=== PATIENT | male | born 1965 | race Caucasian/White ===

== ENCOUNTER 2017-02-03 05:03 | Inpatient (IN) | payer BC ==
[2017-01-04 13:19] VITALS: BMI 25.0
--- NOTE | 2017-01-04 13:47 | PAT Medication Instructions ---
Service Date Jan 04, 2017. Current Home Medication List Bupropion (Wellbutrin), 1 TAB PO QAM Cholecalciferol (Vitamin D3), 1 TAB PO QAM Escitalopram Oxalate (Lexapro), 1 TAB PO QAM Fish Oil (Pineland-3), 1 CAP PO QAM Magnesium Oxide (Mag-Ox), 400 MG PO QAM Multivitamin (Multivitamin), 1 TAB PO QAM Medication Instructions For Your Scheduled Surgery - Hold the following medications 2 weeks prior to surgery: Fish Oil (Pineland-3), 1 CAP PO QAM - Hold the following medications the morning of surgery: Magnesium Oxide (Mag-Ox), 400 MG PO QAM Multivitamin (Multivitamin), 1 TAB PO QAM Cholecalciferol (Vitamin D3), 1 TAB PO QAM - Take the following medications the morning of surgery with a sip of water: Bupropion (Wellbutrin), 1 TAB PO QAM Escitalopram Oxalate (Lexapro), 1 TAB PO QAM - Take the following medications as scheduled the night before surgery: Cholecalciferol (Vitamin D3), 1 TAB PO QPM If you have any questions please call us at [phone] or [phone] or [phone]
--- NOTE | 2017-01-04 14:12 | DIAGNOSTIC IMAGING REPORT ---
CHEST 2 VIEWS ROUTINE CLINICAL HISTORY: PAT preoperative evaluation COMPARISON STUDY: No previous studies for comparison. FINDINGS: The bones soft tissues and hemidiaphragms are normal. The cardiomediastinal silhouette is normal. The lungs are clear. The pulmonary vasculature is normal. IMPRESSION: Negative chest. The above report was generated using voice recognition software. It may contain grammatical, syntax or spelling errors. Electronically signed by: Conor Fu M.D. 01/04/2017 2:11 PM Dictated Date/Time: 01/04/2017 2:10 PM
[2017-01-04 14:45] LABS: BASO % 0.6 %; BASO ABS # 0.04 K/uL (0-0.2); COMPLETE YES; EOS % 2.1 %; HEMATOCRIT 45.6 % (42-52); IG% 0.4 %; LYMPH % 26.5 %; LYMPH ABS # 1.85 K/uL (1.2-3.4); MEAN CELL VOLUME 88.2 fL (80-100); MEAN CORPUSCULAR HEMOGLOBIN 30.4 pg (25-34); MEAN CORPUSCULAR HGB CONC 34.4 g/dl (32-36); MEAN PLATELET VOLUME 9.7 fL (7.4-10.4); MONO % 10.3 %; NEUT % 60.1 %; PLATELET COUNT 231 K/uL (130-400); RED BLOOD COUNT 5.17 M/uL (4.7-6.1); WHITE BLOOD COUNT 6.98 K/uL (4.8-10.8)
[2017-01-04 14:55] LABS: URINE APPEARANCE CLEAR (CLEAR); URINE BILIRUBIN NEG (NEG); URINE COLOR YELLOW; URINE NITRITE NEG (NEG); URINE PH 6.5 (4.5-7.5); UROBILINOGEN NEG (NEG)
[2017-01-04 14:55] LABS: PROTHROMBIN TIME (PATIENT) 10.6 SECONDS (9.0-12.0)
[2017-01-04 15:00] LABS: MANUAL MICROSCOPIC REQUIRED? NO; REVIEW REQ? NO
[2017-01-04 15:12] LABS: BUN/CREATININE RATIO 14.8 (10-20); CALCIUM 9.4 mg/dl (8.5-10.1); CREATININE 1.35 mg/dl (0.60-1.40)
--- NOTE | 2017-02-02 07:12 | HISTORY & PHYSICAL EXAMINATION ---
DATE OF ADMISSION: 02/03/2017 CHIEF COMPLAINT: Primary osteoarthritis of the right hip. 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 He has had right hip pain for several years, but over the past year it has become significantly painful. He has already failed conservative treatment including Euflexxa injections and physical therapy. X-rays and clinical examinations have been diagnostic for primary osteoarthritis of the hip. After failing extensive conservative treatment, he has elected to proceed with a total hip arthroplasty. PAST MEDICAL HISTORY: Significant for depression. MEDICATIONS: Include Lexapro and Wellbutrin. PAST SURGICAL HISTORY: Carpal tunnel release of his right wrist, arthroscopic surgery to the right shoulder and hernia repair. ALLERGIES: PENICILLINS. FAMILY HISTORY: Significant for heart disease, stroke, diabetes, DVTs and cancer. SOCIAL HISTORY: He is , lives alone, rarely drinks, is very active. REVIEW OF SYSTEMS: He complains mostly of right hip pain. All other pertinent review of systems are negative. PHYSICAL EXAMINATION: GENERAL: He is awake, alert and oriented x3. He is in no apparent distress. He is very pleasant. HEENT: Pupils are equal, round and reactive to light. Extraocular motion intact. Oral mucosa is pink and moist. HEART: Regular rate per radial pulse. LUNGS: Brittanie symmetrically bilaterally with no audible breath sounds. ABDOMEN: Soft, nontender, nondistended. MUSCULOSKELETAL: On physical examination of his hip, he is able to get his hip in full extension. He gets about 90 degrees of flexion. He has significant pain with forced internal and external rotation of his hip. His leg lengths are essentially equal. IMAGING: X-rays of the hip do show advanced osteoarthritis of the right hip with joint space narrowing and osteophyte formation. IMPRESSION: Primary osteoarthritis of the right hip. PLAN: Proceed with an anterior right total hip arthroplasty. Postoperatively, he will be started on aspirin for DVT prophylactics and kept in the hospital likely for 2 midnights for postoperative medical management.
[2017-02-03] VITALS (8 sets, daily range): BP systolic 110–147; BP diastolic 61–103; PULSE 70–100; TEMP 36.5–37.3; O2SAT 93–98; Ht 172.7 cm; Wt 74.4 kg
[~2017-02-03] VITALS: Ht 172.7 cm; Wt 74.4 kg
[~2017-02-03 05:03] MED LIST: BUPR75TA20 PO; ESCI1TAB6 PO; MAGN400T6 PO; MULT-506 PO; OMEG10007 PO; VTMD1000 PO
[2017-02-03] MEDS ORDERED: CYAN100073 PO (05:47)
[2017-02-03] MEDS ORDERED: LACTATED RINGER'S 1000ML 500 ML IV ONE (06:00)
[2017-02-03] MEDS ORDERED: ACETAMINOPHEN 500 MG TAB PO SCH (06:00)
[2017-02-03] MEDS ORDERED: ROPIVACAINE 5MG/ML 30 ML 150 MG, BUPIVACAINE 0.5% MPF INJ 30 ML, EpINEphrine HCL INJ 0.... INFIL SCH ×8 (06:00)
[2017-02-03] MEDS ORDERED: GABAPENTIN 300 MG CAP PO SCH (06:00)
[2017-02-03] MEDS ORDERED: LACTATED RINGER'S 1000ML IV SCH (06:00)
[2017-02-03] MEDS ORDERED: FAMOTIDINE 20 MG TAB PO SCH (06:00)
[2017-02-03] MEDS ORDERED: LACTATED RINGER'S 1000ML 1,000 ML IV SCH (06:00)
[2017-02-03] MEDS ORDERED: VANCOMYCIN 1GM/270ML NSS 270 ML IV SCH (06:00)
[2017-02-03] MEDS ORDERED: BUPIVACAINE 0.5 % 5 MG/1 ML PF 10ML VIAL ONE (06:24)
[2017-02-03] MEDS: TRANEXAMIC ACID INJ 1,000 MG in SYRINGE 0 ML IV SCH ×2 (06:30→06:41)
[2017-02-03] MEDS ORDERED: ORTHO JOINT ANESTHETIC ONE (06:31)
[2017-02-03] MEDS ORDERED: BACITRACIN 50000 UNIT VIAL ONE (06:32)
[2017-02-03] MEDS ORDERED: FENTANYL CITRATE INJ 50 MCG/1 ML 2 ML VIAL ONE ×2 (06:35→09:09)
[2017-02-03] MEDS ORDERED: MIDAZOLAM HCL 1 MG/ML 2ML VIAL ONE ×2 (06:36→06:59)
[2017-02-03] MEDS ORDERED: PROMETHAZINE HCL INJ 12.5 MG in SODIUM CHLORIDE 0.9% 50ML 50 ML IV PRN (06:45)
[2017-02-03] MEDS ORDERED: ONDANSETRON INJ 2 MG/ML 2 ML VIAL IV PRN ×2 (06:45→09:15)
[2017-02-03] MEDS ORDERED: FENTANYL CITRATE INJ 50 MCG/1 ML 2 ML VIAL IV PRN (06:45)
[2017-02-03] MEDS ORDERED: ATROPINE SULFATE 0.1 MG/ML 5ML SYR IV PRN (06:45)
[2017-02-03] MEDS ORDERED: EpHEDrine SULFATE INJ 50 MG/ML AMP IV PRN (06:45)
[2017-02-03] MEDS ORDERED: HYDROmorphone INJ 1 MG/ML SYR IV PRN (06:45)
--- NOTE | 2017-02-03 06:45 | History & Physical Bridge Note ---
H&P Re-Evaluation Bridge Note: I have examined the patient, reviewed the History & Physical and in the interval since the performance of the History & Physical I have noted the following changes of clinical significance: No changes noted
[2017-02-03] MEDS ORDERED: HYDROmorphone INJ 2 MG/ML SYR/VIAL ONE (07:35)
[2017-02-03] MEDS ORDERED: DEXAMETHASONE SOD INJ 4 MG/ML VIAL ONE (08:08)
[2017-02-03] MEDS ORDERED: LIDOCAINE HCL 2% 2 ML VIAL (20MG/ML) ONE (08:08)
[2017-02-03] MEDS ORDERED: ONDANSETRON INJ 2 MG/ML 2 ML VIAL ONE (08:08)
[2017-02-03] MEDS ORDERED: PROPOFOL IV EMULSION 10 MG/ML 20 ML VIAL IV ONE (08:08)
--- NOTE | 2017-02-03 09:11 | [facility] Post Operative Brief Note ---
Immediate Operative Summary Operative Date Feb 03, 2017. Pre-Operative Diagnosis Right Hip Degenerative Joint Disease Post-Operative Diagnosis Same as preop Procedure(s) Performed Right Anterior Total Hip Arthroplasty Uncemented Surgeon Dr. Isabel Motor Vehicle Lecturer Surgeon(s) Miguel Oswald PA-C Estimated Blood Loss 250 ml Findings as above Specimens A. Right Femoral Head Complication(s) None Disposition Recovery Room / PACU
[2017-02-03] MEDS ORDERED: MoRPHine SULFATE 2 MG/ML CARP IV PRN (09:15)
[2017-02-03] MEDS ORDERED: SOD PHOSPHATE/SOD BIPHOSPHATE ENEMA 132 ML BTL PR PRN (09:15)
[2017-02-03] MEDS ORDERED: METOCLOPRAMIDE HCL INJ 5 MG/ML 2 ML VIAL IV PRN (09:15)
[2017-02-03] MEDS ORDERED: MAGNESIUM HYDROXIDE SUSP 30 ML UDC PO PRN (09:15)
[2017-02-03] MEDS ORDERED: BISACODYL 10 MG SUPP PR PRN (09:15)
[2017-02-03] MEDS ORDERED: PHENYLEPHRINE 100MCG/ML 5ML SYR ONE (09:28)
[2017-02-03] MEDS ORDERED: EpHEDrine SULFATE 50MG/5ML SYR ONE (09:28)
--- NOTE | 2017-02-03 09:47 | OPERATIVE REPORT ---
DATE OF OPERATION: 02/03/2017 PREOPERATIVE DIAGNOSIS: Primary osteoarthritis of the right hip. POSTOPERATIVE DIAGNOSIS: Same. PROCEDURE: Anterior right total hip arthroplasty. SURGEON: Dr. Niels Isabel. GRANULIZING MACHINE OPERATOR: Miguel Oswald PA-C, whose assistance was necessary for retraction and closure. ANESTHESIA: Spinal and general because the spinal was not fully effective. COMPLICATIONS: None. CONDITION: Stable to PACU. IMPLANTS USED: I used a [employer]omet Taperloc total hip arthroplasty system with a size 5 standard offset Taperloc stem, a size 50-mm G7 cup with a single 30-mm screw, a G7 dual mobility E1 liner with a 28 ceramic head with a -3 neck. INDICATIONS: Adan is a pleasant 51-year-old male, who presented to my office with chronic right hip and groin pain. X-rays and clinical examination were diagnostic for primary osteoarthritis of the right hip. He is a very active individual. He elected to undergo an anterior total hip arthroplasty. DESCRIPTION OF PROCEDURE: On 02/03/2017, he arrived at the [facility] for the above procedure. He was seen in the preoperative holding area and the operative extremity was identified and signed. He was given preoperative antibiotics and a spinal anesthetic. He was taken back to the operating room, laid on the table in supine position and given basic sedation. The right hip was then put on to a Purist leg positioner. The right hip was then prepped and draped in sterile fashion. Time-out was done and the patient's operative extremity was properly identified. Unfortunately, the patient was still having some sensation at the surgical area. We decided to put him under general anesthesia. Once he was under anesthesia, an anterior hip incision was made. Dissection was taken down to the tensor and the tensor muscle belly was retracted laterally and the rectus was retracted medially. The circumflex vessels were ligated. The capsule was then incised and tagged for later repair. The femoral neck was then resected and the head was removed. Time was spent doing a complete circumferential labral release. Sequential reaming up of the acetabulum up to a size 49 reamer was done. A size 50 G7 cup was then impacted into place. Appropriate version was checked under fluoroscopy. A single 30-mm screw was placed. The metal shell was then placed for the dual mobility cup. I chose dual mobility for increased range of motion and stability and longevity in an active 51-year-old. The proximal femur was then exposed. Sequential broaching up to a size 5 broach was done. He had a very tight canal. X-rays were taken and I was happy with the size of the stem. The final size 5 Taperloc stem was then impacted into place. Several different neck combinations were used and a -3 neck seemed to be the best fit. The -3 neck also restored anatomic leg lengths. A 28-mm ceramic head was then impacted into the plastic 40-mm shell and that was placed on the femoral stem. The hip was then reduced. Final fluoroscopic images showed anatomic reduction of the hip. The wound was then irrigated. The surrounding soft tissues were then injected with 100 mL of an orthopedic pain control cocktail. The capsule was then closed with #1 FiberWire suture. A drain was placed. The fascia was then closed with #1 PDS suture. Skin was closed with 2-0 Vicryl, 3-0 V-Loc suture, jayden and a Prevena VAC dressing. He was then extubated, transferred to a [facility] and taken to the postanesthesia care unit in stable condition. He tolerated the procedure well. I attest to the content of the Intraoperative Record and any orders documented therein. Any exception s are noted below.
--- NOTE | 2017-02-03 10:02 | Anesthesiology Progress Note ---
Anesthesia Post Op Note Date & Time Feb 03, 2017 at 10:02 Vital Signs Pain Intensity: 0 Vital Signs Past 12 Hours Date Time Temp Pulse Resp B/P (MAP) Pulse Ox O2 Delivery O2 Flow Rate FiO2 02/03/17 09:55 75 12 152/87 99 Nasal Cannula 2 02/03/17 09:45 75 14 140/88 100 Oxymask 10 02/03/17 09:35 89 16 137/85 100 Oxymask 13 02/03/17 09:24 36.9 81 16 118/69 98 Oxymask 13 02/03/17 05:19 36.5 70 18 147/103 97 Room Air Notes Mental Status: alert / awake / arousable, participated in evaluation Pt Amnestic to Procedure: Yes Nausea / Vomiting: adequately controlled Pain: adequately controlled Airway Patency, RR, SpO2: stable & adequate BP & HR: stable & adequate Hydration State: stable & adequate Neuraxial Anesthesia: was administered, sensory block is resolving Anesthetic Complications: no major complications apparent
--- NOTE | 2017-02-03 10:03 | DIAGNOSTIC IMAGING REPORT ---
R PELVIS/UNILATERAL HIP 1 VIEW HISTORY: 51 years-old Male IN PACU - A/P PELVIS and LATERAL HIP INCLUDING ALL OF IMPLANT status post right hip total joint arthroplasty. Degenerative joint disease. COMPARISON: Pelvis and right hip radiographs 09/13/2016 TECHNIQUE: AP view of the pelvis with frog-leg view of the right hip FINDINGS: Postoperative changes compatible with recent right hip total joint arthroplasty. Alignment is satisfactory without periprosthetic fracture or malalignment identified. 7 mm bone fragment lateral to the ischial tuberosity is noted without definite donor site identified. Linear ossification inferior to the acetabulum likely reflects degenerative marginal osteophytes. Lateral skin jayden are noted in addition to a surgical drain and expected postsurgical soft tissue swelling and deep tissue air. Phleboliths of the pelvis. IMPRESSION: Status post right hip total joint arthroplasty without definite complication identified. The above report was generated using voice recognition software. It may contain grammatical, syntax or spelling errors. Electronically signed by: Iftikhar Cid M.D. 02/03/2017 10:02 AM Dictated Date/Time: 02/03/2017 9:59 AM
--- NOTE | 2017-02-03 12:02 | DIAGNOSTIC IMAGING REPORT ---
R HIP UNILATERAL 1 VIEW HISTORY: 51 years-old Male RT ANTERIOR HIP status post right hip arthroplasty. Degenerative joint disease. COMPARISON: Pelvis radiograph radiographs of same day at 9:37 AM TECHNIQUE: 2 spot fluoroscopic images of the right hip were obtained utilizing 52.9 seconds fluoroscopy time FINDINGS: First image demonstrates placement of the acetabular component which appears to be in satisfactory positioning. The right femoral head and neck have been resected. Second image demonstrates placement of the femoral stem articulating with the acetabular component. Alignment appears satisfactory. IMPRESSION: Status post right hip arthroplasty without complication identified. The above report was generated using voice recognition software. It may contain grammatical, syntax or spelling errors. Electronically signed by: Iftikhar Cid M.D. 02/03/2017 12:00 PM Dictated Date/Time: 02/03/2017 11:59 AM
[2017-02-03] MEDS: KETOROLAC TROMETHAMINE 30 MG/ML VIAL IV. SCH ×2 (13:50→18:00)
[2017-02-03] MEDS: SODIUM CHLORIDE 0.9% 1000ML 1,000 ML IV SCH (13:50)
[2017-02-03] MEDS: ACETAMINOPHEN IV 1,000 MG in EMPTY BAG 0 ML IV SCH ×2 (13:50→22:22)
[2017-02-03] MEDS ORDERED: VANCOMYCIN INJ 1,000 MG in SODIUM CHLORIDE 0.9% 250ML 250 ML IV SCH (16:00)
--- NOTE | 2017-02-03 16:01 | Discharge Instructions ---
Discharge Instructions Date of Service Feb 03, 2017. Admission Reason for Admission: Right Hip Degenerative Joint Disease Discharge Discharge Diagnosis / Problem: Right Total Hip Discharge Goals Goal(s): Decrease discomfort, Improve function Activity Recommendations Activity Limitations: as noted below . Instructions / Follow-Up Instructions / Follow-Up Activity and Therapy Recommendations: * If you are using [facility] then Physical Therapy will be provided until they feel you are ready to start Outpatient Physical Therapy. If you are not using a Home Health agency then Outpatient Physical Therapy should start about 3-5 days from your day of surgery. Therapy will last about 3-6 weeks * You were shown a series of exercises in the hospital. Do these exercises three times each day including the exercises you were shown in physical therapy. * Get up and walk several times each day.~ For the first four weeks, try not to stand or walk for more than one hour at a time. If you do stand or walk for more than one hour, you will not hurt anything, but your leg will likely swell.~ ~ * As you feel comfortable, you may change from the walker or crutches to a cane and~then to independent walking. Medications: * Narcotic You will likely be sent home from the hospital with a prescription for the narcotic pain medication that worked best throughout your stay. * Aspirin Most patients will be required to take Aspirin 325mg twice a day for 6 weeks after surgery. This is obtained [id number] and a prescription is not necessary. * Other medications may be prescribed for specific circumstances. If you have any questions, please call the office at . * Resume previous home medications unless otherwise instructed TEDs/Elastic Stockings: The white elastic stockings help limit swelling and prevent blood clots from forming in your legs. The more you wear them, the more they work. Wear them for six weeks. Dressing Care: Take the VAC dressing off if it is still on at 10 days. Then cover with dry dressing on needed or leave open to air. Don't be concerned if VAC come off before 10 days (it often does) Showering: You may shower with VAC, but don't let spray directly hit it. It can get a little wet, but not soaked. May shower normal once VAC is removed. Let soapy water run over jayden. Things To Watch For: * Drainage from the incision site that occurs more than one week after your surgery. * Increased redness at the incision site. * Fever above 102 degrees Fahrenheit. * Unusual chest pain or shortness of breath. * Call [facility] at with any of the above problems Follow-Up Visit: Follow-up with Dr. Isabel 2 weeks after your day of surgery. An appointment was probably scheduled when you signed-up for surgery in the office. If you have any questions call Office Instructions: More detailed instructions as well as Frequently Asked Questions were provided in a folder by our office when you signed-up for surgery. Please review these instructions when you get home. If you have any further questions or concerns, please feel free to call the office at [phone] Current Hospital Diet Patient's current hospital diet: Regular Diet Discharge Diet Recommended Diet: Regular Diet Procedures Procedures Performed: Right Anterior Total Hip Arthroplasty Uncemented Pending Studies Studies pending at discharge: no Medical Emergencies . Who to Call and When: Medical Emergencies: If at any time you feel your situation is an emergency, please call 911 immediately. . Non-Emergent Contact Non-Emergency issues call your: Surgeon Call Non-Emergent contact if: wound has increased drainage, wound has increased redness . "Provider Documentation" section prepared by Niels Isabel. . VTE Core Measure Inpt VTE Proph given/why not?: Other Anticoagulation (Aspirin 325 twice a day for 6 weeks)
[2017-02-03] MEDS: OXYCODONE HCL IR 5 MG TAB (IMMEDIATE RELEASE) PO PRN (19:10)
[2017-02-03] MEDS ORDERED: SENNA 8.6 MG TAB PO SCH (21:00)
[2017-02-03] MEDS: DOCUSATE SODIUM 100 MG CAP PO SCH (21:20)
[2017-02-03] MEDS: ASPIRIN 325 MG ECTAB PO SCH (21:20)
[2017-02-03] MEDS ORDERED: LXP/20 PO (23:18)
[2017-02-03] MEDS ORDERED: BUPR150T6 PO (23:18)
[2017-02-03] MEDS ORDERED: WLLSR150 PO (23:23)
[2017-02-04] MEDS: KETOROLAC TROMETHAMINE 30 MG/ML VIAL IV. SCH ×3 (00:09→11:38)
[2017-02-04] MEDS: SODIUM CHLORIDE 0.9% 1000ML 1,000 ML IV SCH ×2 (00:10→07:14)
[2017-02-04 03:17] VITALS: BP 95/57; PULSE 78; TEMP 36.5; O2SAT 99
[2017-02-04] MEDS: ACETAMINOPHEN IV 1,000 MG in EMPTY BAG 0 ML IV SCH (05:31)
[2017-02-04 06:05] LABS: BASO % 0.1 %; BASO ABS # 0.01 K/uL (0-0.2); COMPLETE YES; EOS % 0.3 %; HEMATOCRIT 32.8 % (42-52); IG% 0.3 %; LYMPH % 10.8 %; LYMPH ABS # 1.29 K/uL (1.2-3.4); MEAN CELL VOLUME 88.9 fL (80-100); MEAN CORPUSCULAR HEMOGLOBIN 30.1 pg (25-34); MEAN CORPUSCULAR HGB CONC 33.8 g/dl (32-36); MEAN PLATELET VOLUME 9.1 fL (7.4-10.4); MONO % 10.4 %; NEUT % 78.1 %; PLATELET COUNT 179 K/uL (130-400); RED BLOOD COUNT 3.69 M/uL (4.7-6.1)
[2017-02-04 06:38] LABS: BUN/CREATININE RATIO 17.5 (10-20); CALCIUM 8.1 mg/dl (8.5-10.1); CREATININE 1.13 mg/dl (0.60-1.40); POTASSIUM 3.7 mmol/L (3.5-5.1)
[2017-02-04] MEDS: ASPIRIN 325 MG ECTAB PO SCH (07:33)
[2017-02-04] MEDS: DOCUSATE SODIUM 100 MG CAP PO SCH (07:33)
[2017-02-04] MEDS ORDERED: ASPEC325 PO (07:40)
[2017-02-04] MEDS ORDERED: RXC5 PO (07:40)
--- NOTE | 2017-02-04 07:58 | PROGRESS NOTE ---
DATE: 02/04/2017 CHIEF COMPLAINT: Status post right total hip arthroplasty, postop day #1. PROGRESS: Adan was seen and examined at bedside today. Overall, he is doing very well. He was up ambulating around the nurses' station last night. He has a little bit of soreness in his hip, but it is not too bad. He has no complaints. PHYSICAL EXAMINATION: RIGHT HIP: His leg lengths are equal. He has active dorsiflexion and plantarflexion of his right ankle. He can actively extend his knee and activate his quad. His Prevena VAC dressing is to suction and his drain is to suction. LABORATORY DATA: He has an H&H today of 11.1 and 32.8. His glucose is 117 and his vital signs are all stable on room air. He is voiding on his own. X-rays postoperatively of the right hip show the prosthesis to be in anatomic alignment without any evidence of fracture, dislocation or loosening. IMPRESSION: Status post right total hip arthroplasty, postop day #1. PLAN: At this point, he is doing well and happy with his progress. He will be seen by physical therapy today for ambulation. He is on aspirin for DVT prophylaxis. He can be discharged to home later today on oral pain medications if he is doing well.
[2017-02-04 08:18] VITALS: BP 110/76; PULSE 79; TEMP 37; O2SAT 96
[2017-02-04] MEDS ORDERED: MAGNESIUM OXIDE 400 MG TAB PO SCH (09:00)
[2017-02-04] MEDS ORDERED: ESCITALOPRAM OXALATE 20 MG TAB PO SCH (09:00)
[2017-02-04] MEDS ORDERED: MULTIVITAMIN TAB PO SCH (09:00)
[2017-02-04] MEDS ORDERED: BuPROPion SR 150 MG TABCR PO SCH (09:00)
[2017-02-04] MEDS ORDERED: CHOLECALCIFEROL 1000 INTER.UNIT TAB PO SCH (09:00)
[2017-02-04] MEDS ORDERED: CYANOCOBALAMIN 500 MCG TAB (VIT B-12) PO SCH (09:00)
[2017-02-04 10:04] VITALS: BP 110/76; PULSE 79; TEMP 37; O2SAT 96
[2017-02-04 11:56] VITALS: BP 143/83; PULSE 79; TEMP 36.7; O2SAT 100
[2017-02-04] MEDS: OXYCODONE HCL IR 5 MG TAB (IMMEDIATE RELEASE) PO PRN (15:30)
--- NOTE | 2017-02-05 10:22 | DISCHARGE SUMMARY ---
DISCHARGE DIAGNOSIS: Primary osteoarthritis of the right hip. PROCEDURE: Right total hip arthroplasty on 02/03/[address] Niels Isabel. DISCHARGE INSTRUCTIONS: 1. Aspirin 325 mg twice a day for DVT prophylaxis. 2. NELSY hose stockings for 6 weeks. 3. Oxycodone 5-10 mg every 4 hours as needed for pain. 4. Wellbutrin 150 mg daily. 5. Escitalopram 20 mg daily. 6. Leave Prevena VAC dressing on for 7-10 days. 7. May shower once the Prevena VAC dressing is off. 8. Follow up with Dr. Isabel in 2 weeks. 9. Call the office of Dr. Isabel with any questions or concerns. HOSPITAL COURSE: Adan is a pleasant 51-year-old male who presented to my office with chronic right hip pain. X-rays and clinical examination were diagnostic for primary osteoarthritis of the right hip. After failing extensive conservative treatment, he elected to undergo a right total hip arthroplasty. On 02/03/2017, he arrived at [facility] and underwent a right hip replacement without complication. He initially had a spinal anesthetic, but the spinal was not working that well, so we went under general anesthesia. Postoperatively, he was then discharged to general orthopedic floor. He was started on aspirin 325 mg twice a day for DVT prophylaxis. His hospital course was uneventful. On postop day #1, his H&H was stable at 11.1 and 32.8. He was up and ambulating well with physical therapy and his pain was well controlled. The Hemovac drain was pulled and he was subsequently discharged to home with oral pain medications, aspirin and the above instructions.
== END 2017-02-04 15:42 | disposition home or self-care (01) | DRG 470 ==
LOC: C.ACU 05:03 → C.3E 09:25 → ENRESERV 10:20
PROVIDERS: ADMIT Orthopaedic Surgery; ATTEND Orthopaedic Surgery
PROC: 0SR903A Replacement of Right Hip Joint with Ceramic Synthetic Substitute, Uncemented, Open Approach (ICD-10-PCS; principal; 2017-02-03 07:00)
DX: M16.11 Unilateral primary osteoarthritis, right hip (principal)